=== PATIENT | male | born 1935 | race Caucasian/White ===

== ENCOUNTER 2021-04-07 08:58 | Emergency (ER) | payer MEDICARE, OTHER, SELFPAY ==
[2021-04-07 08:59] VITALS: BP 171/113; PULSE 86; RESP 18; TEMP 36.6; O2SAT 98; BMI 29.7
[2021-04-07 09:03] VITALS: BP 171/113; PULSE 86; RESP 18; TEMP 36.6; O2SAT 98
--- NOTE | 2021-04-07 09:04 | ED.RN ---
PT WITH DEMENTIA. UNABLE TO OBTAIN INFORMATION, PT HAS NOT BEEN TO THIS HOSPITAL BEFORE. NO INFO IN SYSTEM
--- NOTE | 2021-04-07 09:11 | ED.RN ---
PT GOT COVID BOOSTER ON THURSDAY
--- NOTE | 2021-04-07 09:34 | EKG12_ITS ---
Test Reason : Blood Pressure : / mmHG Vent. Rate : 079 BPM Atrial Rate : 080 BPM P-R Int : 000 ms QRS Dur : 096 ms QT Int : 404 ms P-R-T Axes : 000 -23 011 degrees QTc Int : 463 ms SINUS RHYTHM WITH PVC Nonspecific ST and T wave abnormality Abnormal ECG Confirmed by MAVERICK ESTRADA, IZZY ([id number]), film editor supervisor MAYRA KLEIN ([id number]) on 04/10/2021 1:21:43 PM Referred By: TRACEY ROBLES Confirmed By:IZZY TEMPLE MD
--- NOTE | 2021-04-07 09:34 | RAD_ITS ---
STUDY: X-RAY CHEST REASON FOR EXAM: Male, 85 years old. chest pain TECHNIQUE: Single AP portable view of the chest. COMPARISON: None. FINDINGS: The lungs are clear and expanded. There is no demonstrated pleural abnormality. Normal size heart. Normal mediastinum and vandana. Normal visualized pulmonary arteries. Normal visualized aortic arch and descending thoracic aorta. Normal visualized thoracic spine. Status post left shoulder hemiarthroplasty. There is no demonstrated abnormality of the visualized soft tissue structures of the upper abdomen. RAD/Chest 1 View (Portable) IMPRESSION: No active disease. Electronically Signed: Erik Rodriguez MD at 11:01 EST Tel , Service support ,
--- NOTE | 2021-04-07 09:35 | EDS_ITS ---
HPI History of Present Illness Chief Complaint: Weakness Narrative Narrative: 85-year-old male with history of Parkinson and dementia who is a poor informant and self assisted by his family to the emergency room for weakness. Apparently the patient was fine yesterday but overnight started becoming weak. He was helped to the restroom in the middle the night and was able to get back to bed but this morning he is having more difficulty ambulating around and is generally weak. After assisting him to the restroom family was unable to get him up on his feet with his walker. He himself states he is not dyspneic however by EMS he is 86%. He does not know lower extremity edema but family says that this is actually improved. He does not have any chest pain but family notes that he had a lot of belching and dyspepsia yesterday. He is not had a fever, chills, body aches. Patient does have a history of prostate cancer previously status post radiation and chemotherapy. [facility] Medical History Dementia Heart attack Kidney failure Parkinson disease Prostate CA TIA (transient ischemic attack) Allergy/AdvReac Type Severity Reaction Status Date / Time clarithromycin [From Biaxin] Allergy Vomiting Verified 04/07/21 09:11 levofloxacin [From Levaquin] Allergy Vomiting Verified 04/07/21 09:11 Penicillins Allergy Vomiting Verified 04/07/21 09:11 CT DYE Allergy NEEDS Uncoded 04/07/21 09:11 FOLLOW-UP Social History Smoking Status: Unknown if ever smoked ROS ROS ED ROS Narrative Generalized weakness and fatigue Constitutional Constitutional ED: Denies chills or fever(s) Eyes Eyes: Denies blurry vision or diplopia ENT ENT ED: Denies rhinorrhea or sore throat Cardiovascular Cardiovascular: Denies chest pain or palpitations Respiratory/Chest Respiratory/Chest: Denies cough or dyspnea Genitourinary Genitourinary ED: Denies dysuria or hematuria Musculoskeletal Musculoskeletal: Denies arthralgias or myalgias Integumentary Denies Abrasions or rash Neurologic Neurologic: Denies headache(s) or paresthesias EXAM Physical Exam Const Vital Signs: 04/07/21 08:59 04/07/21 09:03 04/07/21 09:05 Temperature 97.9 F 97.9 F Temperature Source Temporal Temporal Pulse Rate 86 86 Respiratory Rate 18 18 Respiratory Effort Short of Breath Blood Pressure 171/113 H 171/113 H Blood Pressure Mean 132 132 Pulse Ox 98 98 Oxygen Delivery Method Nasal Cannula Nasal Cannula Oxygen Flow Rate (L/min) 3 3 04/07/21 10:03 04/07/21 10:11 04/07/21 13:07 Temperature 97.9 F Temperature Source Temporal Pulse Rate 86 76 Respiratory Rate 18 18 Respiratory Effort Blood Pressure 171/113 H 146/78 H Blood Pressure Mean 132 100 Pulse Ox 98 96 Oxygen Delivery Method Room Air Room Air Room Air Oxygen Flow Rate (L/min) 3 3 Positive well nourished General Appearance ED: NAD; Negative for cyanotic, diaphoretic or pallor HEENT Reports dry mucous membranes Negative for trauma Mouth ED: Yes dry mucous membranes Mouth: dry mucous membranes Eyes PERRL and EOMs intact bilaterally Neck no lymphadenopathy and supple Chest Wall inspection of chest normal and palpation of chest normal Resp normal respiratory effort and clear to auscultation bilaterally Cardio regular rate and regular rhythm GI normal to inspection, nondistended, normoactive bowel sounds Extremity General Extremety ED: Yes edema; Negative for tenderness General Extremity: edema Neuro CN's II-XII intact bilaterally Sensorium / Orientation: alert Skin General Skin Exam: Negative for jaundice or pallor MDM MDM MDM Narrative Medical decision making narrative: Patient initially acting confused and was requiring oxygen. 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 He does becomes very weak and his last for short times. I did obtain blood work because the patient was dyspneic and requiring oxygen. Initially I ordered basic lab work but when he had an elevated white blood cell count I did order sepsis lab work. His CBC shows a white blood cell count of 18.0. Hemoglobin and hematocrit are stable near baseline and actually increased. Coagulation studies are normal. Patient has CKD and his creatinine is 3.17. He seems to alternate between 2.5 and 3 based on what I saw on his previous lab work. He does not have any lab work in our computer system. BNP is slightly elevated. Chest x- ray my interpretation shows no acute cardiopulmonary process and the radiologist does agree. EKG shows what appears to be a sinus rhythm with a ventricular rate of 79 bpm with artifactual changes. He does not appear to be ischemia. Patient has not reported any chest pain although he does appear short of breath initially. Urinalysis negative. After short while the patient became more alert and awake, and his states that he has been doing this for some time with his Parkinson's. He is no longer requiring oxygen and is acting at his baseline. He is ambulated around the room, and his feels like she can take him home at this point. I do not have a source to explain his white blood cell count, however the patient was pancultured. If there is any worsening they are counseled to return to the ER. If there are any positive cultures the patient will be called and return to the ER. Impression: 1. Generalized weakness resolved 2. History of Parkinson's disease 3. Leukocytosis Lab Data Attestation: I reviewed the patient's lab results. Labs: Laboratory Results - last 24 hr 04/07/21 04/07/21 04/07/21 09:05 09:05 09:05 WBC 18.0 H RBC 3.23 L Hgb 10.8 L Hct 33.2 L MCV 102.8 H MCH 33.4 H MCHC 32.5 RDW Std Deviation 57.0 H RDW Coeff of Daniella 15.3 H Plt Count 164 MPV 12.4 H Immature Gran % (Auto) 0.400 Neut % (Auto) 87.0 H Lymph % (Auto) 4.8 L [place] % (Auto) 5.3 Eos % (Auto) 2.1 Baso % (Auto) 0.4 Absolute Neuts (auto) 15.6 H Absolute Lymphs (auto) 0.86 Nucleated RBC % 0 PT INR Sodium Cancelled Potassium Cancelled Chloride Cancelled Carbon Dioxide Cancelled Anion Gap Cancelled BUN Cancelled Creatinine Cancelled Estim Creat Clear Calc Cancelled Est GFR (MDRD) Af Amer Cancelled Est GFR (MDRD) Non-Af Cancelled BUN/Creatinine Ratio Cancelled Glucose Cancelled Lactic Acid Calcium Cancelled Troponin I High Sens Cancelled B-Natriuretic Peptide Cancelled Urine Color Urine Clarity Urine pH Ur Specific [place] Urine Protein Urine Glucose (UA) Urine Ketones Urine Occult Blood Urine Nitrite Urine Bilirubin Urine Urobilinogen Ur Leukocyte Esterase Urine RBC Urine WBC Ur Squamous Epith Cells Urine Bacteria Urine Mucus 04/07/21 04/07/21 04/07/21 11:25 11:25 11:25 WBC RBC Hgb Hct MCV MCH MCHC RDW Std Deviation RDW Coeff of Daniella Plt Count MPV Immature Gran % (Auto) Neut % (Auto) Lymph % (Auto) [place] % (Auto) Eos % (Auto) Baso % (Auto) Absolute Neuts (auto) Absolute Lymphs (auto) Nucleated RBC % PT 12.8 INR 1.0 Sodium 143 Potassium 3.6 Chloride 104 Carbon Dioxide 32.0 Anion Gap 7 BUN 38 H Creatinine 3.17 H Estim Creat Clear Calc 17.59 Est GFR (MDRD) Af Amer 24 L Est GFR (MDRD) Non-Af 20 L BUN/Creatinine Ratio 12.0 Glucose 131 H Lactic Acid Calcium 9.7 Troponin I High Sens 22 B-Natriuretic Peptide 480.8 H Urine Color Urine Clarity Urine pH Ur Specific [place] Urine Protein Urine Glucose (UA) Urine Ketones Urine Occult Blood Urine Nitrite Urine Bilirubin Urine Urobilinogen Ur Leukocyte Esterase Urine RBC Urine WBC Ur Squamous Epith Cells Urine Bacteria Urine Mucus 04/07/21 04/07/21 11:25 12:15 WBC RBC Hgb Hct MCV MCH MCHC RDW Std Deviation RDW Coeff of Daniella Plt Count MPV Immature Gran % (Auto) Neut % (Auto) Lymph % (Auto) [place] % (Auto) Eos % (Auto) Baso % (Auto) Absolute Neuts (auto) Absolute Lymphs (auto) Nucleated RBC % PT INR Sodium Potassium Chloride Carbon Dioxide Anion Gap BUN Creatinine Estim Creat Clear Calc Est GFR (MDRD) Af Amer Est GFR (MDRD) Non-Af BUN/Creatinine Ratio Glucose Lactic Acid 1.3 Calcium Troponin I High Sens B-Natriuretic Peptide Urine Color Yellow Urine Clarity Clear Urine pH 6.5 Ur Specific [place] 1.010 Urine Protein 100 H Urine Glucose (UA) Normal Urine Ketones Negative Urine Occult Blood Negative Urine Nitrite Negative Urine Bilirubin Negative Urine Urobilinogen Normal Ur Leukocyte Esterase Negative Urine RBC 0 SEEN Urine WBC 0 SEEN Ur Squamous Epith Cells 0 SEEN Urine Bacteria 0 SEEN Urine Mucus 0 SEEN Radiography Diagnostic Testing: Clinical Impression(s) from Imaging Studies Chest X-Ray 04/07/21 09:34 IMPRESSION: No active disease. Electronically Signed: Erik Rodriguez MD at 11:01 EST Tel , Service support , Discharge Plan Triage Chief Complaint: Weakness ED Provider: Bucky March Dx/Rx/DC Orders Instructions: ED Weakness (Uncertain Cause) Primary Care Provider: Hunter Senior Referrals: Hunter Senior MD [Primary Care Provider] - Disposition Disposition: Home, Self Care
--- NOTE | 2021-04-07 09:40 | NURSING ---
NO OLD EKGS
[2021-04-07 10:03] VITALS: BP 171/113; PULSE 86; RESP 18; TEMP 36.6; O2SAT 98
[2021-04-07 10:08] LABS: Absolute Lymphocyte Count 0.86 X10^3/uL (0.83-4.51); Absolute Neutrophil Count 15.6 X10^3/uL (2.0-7.7); Basophil# 0.08 X10^3/uL; Basophil% 0.4 % (0-1); Eosinophil# 0.38 X10^3/uL; Eosinophils% 2.1 % (0-5); Hematocrit 33.2 % (40-54); Hemoglobin 10.8 g/dL (13.0-16.5); Lymphocyte # 0.86 X10^3/ul (0.83-4.51); Lymphocyte % 4.8 % (19-41); Mean Corp Hgb Conc 32.5 g/dL (32-36); Mean Corpuscular Hgb 33.4 pg (27.0-32.0); Mean Corpuscular Volume 102.8 fL (80-94); Mean Platelet Vol. 12.4 fl (6.2-12.0); Monocyte# 0.96 X10^3/uL; Monocyte% 5.3 % (0-10); NRBC Flagged by Analyzer 0 % (0-5); Platelet Count 164 K/mm3 (150-450); RBC Distribution Width CV 15.3 % (11.6-14.6); Red Blood Count 3.23 M/mm3 (4.6-6.2)
--- NOTE | 2021-04-07 10:20 | NURSING ---
PER MAZIN MCNAIR, NOREEN AND PURPLE HEMOIZED
[2021-04-07 11:53] LABS: Anion Gap 7 (5-15); BUN 38 mg/dL (7-18); Calcium,Total 9.7 mg/dL (8.5-10.1); Chloride 104 mmol/L (98-107); Creatinine, Serum 3.17 mg/dL (0.70-1.30); EST Glomerular Filtration Rate 20 mL/min (>60); Est Glom Filt Rate - Afr Amer 24 mL/min (>60); Estimated Creatinine Clearance 17.59 ml/min; Glucose 131 mg/dL (74-106); Potassium 3.6 mmol/L (3.5-5.1); Sodium Level 143 mmol/L (136-145); Troponin-I HS 22 pg/mL (3.0-78.0)
[2021-04-07 11:54] LABS: Prothrombin Time (Protime)PT. 12.8 SECONDS (11.7-14.9)
[2021-04-07 12:00] LABS: Lactic Acid 1.3 mmol/L (0.4-1.9)
[2021-04-07 12:27] LABS: BNP,B-Type NATRIURETIC PEPTIDE 480.8 pg/mL (0-100)
[2021-04-07 12:45] LABS: Bacteria 0 SEEN /hpf (None Seen); Mucous, Urine 0 SEEN /hpf (<or=2+); Red Blood Cells-Urine 0 SEEN /hpf (0-5); Squamous Epithelial Cells - UA 0 SEEN /hpf (0-5); White Blood Cells 0 SEEN /hpf (0-5)
[2021-04-07 12:56] LABS: Color, Urine Yellow (Yellow); Glucose, Dipstick Normal (Normal); Ketone-Dipstick Negative (Negative); Leukocyte Esterase-Dipstick Negative /ul (Negative); Nitrite-Dipstick Negative (Negative); Occult Blood-Urine Negative /ul (Negative); Protein-Dipstick 100 mg/dl (Negative); Urine Bilirubin Dipstick Negative (Negative); Urine Clarity Clear (Clear); Urine Urobilinogen Normal (Normal); Urine pH 6.5 (5.0 - 8.0)
[2021-04-07 13:07] VITALS: BP 146/78; PULSE 76; RESP 18; O2SAT 96
--- NOTE | 2021-04-07 14:22 | CON.PCM.HO_ITS ---
Assessment & Plan Assessment/Plan (1) Failure to thrive: QUALIFIERS: Failure to thrive age range: in adult Qualified Code(s): R62.7 - Adult failure to thrive (2) REX (acute kidney injury): (3) Leukocytosis: QUALIFIERS: Leukocytosis type: unspecified Qualified Code(s): D72.829 - Elevated white blood cell count, unspecified PLAN: 1. failure to thrive feeling better at present. I suspect this is due to the fact the patient has a poor baseline performance status but also what appears to be advanced Parkinson's disease. notes that he does have these periods of freezing. I explained to her that that is not uncommon in people with advanced Parkinson's but I seem to get stuck in position as there is not adequately communicating with her body to do something. Talk with him about have the patient brought in a senior living facility. They prefer him to go home. She says that her daughter is coming in town and is planning to stay with them for about a week. Additionally, she is planning on taking his bed downstairs as is already been handicap assessable at their home. Would recommend home health care for them at home. They are already established with palliative care. His states that there is no interest in going to a senior living facility at this time. 2. Acute kidney injury on chronic kidney disease. As for the patient's baseline creatinine is around 2.5. Measured patient has CKD 3 or 4. Follow-up nephrology. Patient does take diuretic with furosemide. He was taking that every other day. I have advised him to stop taking it for the time being and to have follow-up lab work. 3. Leukocytosis And will have any baseline labs to compare to but infectious work-up is thus far been negative. 4. Parkinson's disease Follow-up with neurology as needed. Discussed with Dr. March. Patient is able to ambulate plan will be to patient discharged home. Patient is admitted this consult will serve as history physical. HPI Consult Data Date of Consult: 04/07/21 HPI Narrative HPI Narrative: MARTIN SOLOMON, is a 85 M who presents with weakness. History is obtained from the ED physician as well as nursing. Last night, he was well, but today he was weaker and stuck, unable to move. He was noted to be hypoxic at 86% and sent to the ED. In the ED his work up was remarkable for leukocytosis of 18, Creatinine of 3.17 (baseline around 2.5). CXR and UA were unremarkable. After I was contacted for admission, pt was feeling better, taken off oxygen and his sats were 95%. He is feeling better and wishes to go home. said he has a history fall with an intracranial hemorrhage recently. He is longer taking clopidogrel. REPLACED BY [facility] Medical History Dementia Heart attack Kidney failure Parkinson disease Prostate CA TIA (transient ischemic attack) Allergy/AdvReac Type Severity Reaction Status Date / Time clarithromycin [From Biaxin] Allergy Vomiting Verified 04/07/21 09:11 levofloxacin [From Levaquin] Allergy Vomiting Verified 04/07/21 09:11 Penicillins Allergy Vomiting Verified 04/07/21 09:11 CT DYE Allergy NEEDS Uncoded 04/07/21 09:11 FOLLOW-UP Social History Smoking Status: Unknown if ever smoked ROS ROS Narrative All review of systems were negative except as mentioned above in the history of present illness and the other review of systems. At baseline, uses a walker and moves slowly. provides a lot of assistance for him at home. Physical Exam Const alert and no apparent distress Constitutional Narrative: Slow speech. General Appearance: cooperative HEENT normocephalic and head/scalp atraumatic Neck no lymphadenopathy Resp normal respiratory effort, no retractions, no use of accessory muscles and clear to auscultation bilaterally Cardio regular rate, regular rhythm, S1 normal heart sound and S2 normal heart sound GI normal to inspection, nondistended, normoactive bowel sounds, soft to palpation, non-tender and non-distended Extremity normal to inspection and full ROM Skin no rashes or lesions noted, no wounds and skin turgor normal Neuro oriented x3 Sensorium / Orientation: awake, alert and oriented to person Psych affect normal Lab / Micro Data Result Diagrams: 04/07/21 09:05 04/07/21 11:25 Labs: Laboratory Results - last 24 hr 04/07/21 09:05: WBC 18.0 H, RBC 3.23 L, Hgb 10.8 L, Hct 33.2 L, MCV 102.8 H, MCH 33.4 H, MCHC 32.5, RDW Std Deviation 57.0 H, RDW Coeff of Daniella 15.3 H, Plt Count 164, MPV 12.4 H, Immature Gran % (Auto) 0.400, Neut % (Auto) 87.0 H, Lymph % (Auto) 4.8 L, [place] % (Auto) 5.3, Eos % (Auto) 2.1, Baso % (Auto) 0.4, Absolute Neuts (auto) 15.6 H, Absolute Lymphs (auto) 0.86, Nucleated RBC % 0 04/07/21 09:05: Sodium Cancelled, Potassium Cancelled, Chloride Cancelled, Carbon Dioxide Cancelled, Anion Gap Cancelled, BUN Cancelled, Creatinine Cancelled, Estim Creat Clear Calc Cancelled, Est GFR (MDRD) Af Amer Cancelled, Est GFR (MDRD) Non-Af Cancelled, BUN/Creatinine Ratio Cancelled, Glucose Cancelled, Calcium Cancelled, Troponin I High Sens Cancelled 04/07/21 09:05: B-Natriuretic Peptide Cancelled 04/07/21 11:25: Sodium 143, Potassium 3.6, Chloride 104, Carbon Dioxide 32.0, Anion Gap 7, BUN 38 H, Creatinine 3.17 H, Estim Creat Clear Calc 17.59, Est GFR (MDRD) Af Amer 24 L, Est GFR (MDRD) Non-Af 20 L, BUN/Creatinine Ratio 12.0, Glucose 131 H, Calcium 9.7, Troponin I High Sens 22 04/07/21 11:25: B-Natriuretic Peptide 480.8 H 04/07/21 11:25: PT 12.8, INR 1.0 04/07/21 11:25: Lactic Acid 1.3 04/07/21 12:15: Urine Color Yellow, Urine Clarity Clear, Urine pH 6.5, Ur Specific [place] 1.010, Urine Protein 100 H, Urine Glucose (UA) Normal, Urine Ketones Negative, Urine Occult Blood Negative, Urine Nitrite Negative, Urine Bilirubin Negative, Urine Urobilinogen Normal, Ur Leukocyte Esterase Negative, Urine RBC 0 SEEN, Urine WBC 0 SEEN, Ur Squamous Epith Cells 0 SEEN, Urine Ba cteria 0 SEEN, Urine Mucus 0 SEEN Micro: Microbiology 04/07/21 10:15 Nasal Secretion SARS-CoV-2 Antigen (Rapid) - Final Radiology Impression Chest X-Ray 04/07/21 09:34 IMPRESSION: No active disease. Electronically Signed: Martin Rodriguez MD at 11:01 EST Tel , Service support , Charges/Coding Visit Charges Office Visits / Consults: [id number] OP Consult L4
--- NOTE | 2021-04-07 14:53 | ED.RN ---
PT AMBULATED WITHOUT DIFFICULTY. USED WALKER. PT STEADY
[2021-04-07 15:31] VITALS: BP 140/78; PULSE 67; RESP 18; O2SAT 99
== END 2021-04-07 15:32 | disposition home or self-care (01) ==
PROVIDERS: Emergency Provider Student in an Organized Health Care Education/Training Program; PCP Internal Medicine
DX: R53.1 Weakness (principal); R62.7 Adult failure to thrive; N17.9 Acute kidney failure, unspecified; D72.829 Elevated white blood cell count, unspecified; N18.30 Chronic kidney disease, stage 3 unspecified; G20 Parkinson's disease; F02.80 Dementia in other diseases classified elsewhere, unspecified severity, without behavioral disturbance, psychotic disturbance, mood disturbance, and anxiety; I25.2 Old myocardial infarction; Z86.73 Personal history of transient ischemic attack (TIA), and cerebral infarction without residual deficits; Z51.5 Encounter for palliative care; Z79.02 Long term (current) use of antithrombotics/antiplatelets; Z85.46 Personal history of malignant neoplasm of prostate; Z88.0 Allergy status to penicillin; Z92.3 Personal history of irradiation; R06.02 Shortness of breath
CPT/HCPCS: 71045; 80048; 81001; 83605; 83880; 84484; 85025; 85610; 87040; 87077; 87086; 87088; 87149; 87186; 87426; 93005; 99285; A4216